=== PATIENT | female | born 1945 | race Caucasian/White ===

== ENCOUNTER 2021-07-21 00:35 | Emergency (ER) | payer MEDICARE, OTHER ==
[2021-07-21] MEDS ORDERED: Labetalol 20 MG/4 ML Syringe IVPUSH ONE ×2 (01:00→01:38)
[2021-07-21] MEDS ORDERED: Labetalol 20 MG/4 ML Syringe ONE (01:01)
[2021-07-21 01:26] LABS: ANION GAP 12.8 mEq/L (7-13); CHLORIDE,CL 103 mmol/L (98-107); SODIUM,NA 141 mmol/L (136-145)
--- NOTE | 2021-07-21 01:27 | EDM.PDOC ---
ED HPI GENERAL MEDICAL PROBLEM - General Chief Complaint: Neuro Symptoms/Deficits Stated Complaint: LEFT SIDE ON ARM AND FACE NUMB Time Seen by Provider: 07/21/21 00:50 Source of Information: Reports: Patient, RN History Limitations: Reports: No Limitations - History of Present Illness INITIAL COMMENTS - FREE TEXT/NARRATIVE: ED with c/o intermittent numbness to left fingertips and left cheek since 11pm. Denies prior similar simptoms, No headache, No blurring of vision, No noted difficulty with speech, reported off balance first couple of steps then seemed to be normal. Took baby aspirin at home when first noted symptoms. Describes hx of " normal BP at home 130-140's / 90 and that in clinic or hospital type setting BP is always higher, Has not been on medication for P for years and was stopped by medical provider since she didn't need it. Aspirin 81mg and 325mg taken [employer] T[employer]ER. 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: Aspirin - Related Data Allergies Allergy/AdvReac Type Severity Reaction Status Date / Time No Known Allergies Allergy Verified 07/21/21 00:47 Home Meds: Home Meds Bisoprolol/Hydrochlorothiazide [Ziac 10-6.25 MG] 1 tab PO DAILY 01/15/14 [History] Cholecalciferol (Vitamin D3) [Vitamin D3] PO DAILY 01/15/14 [History] Fish Oil/[place]-3 Fatty Acids [Fish Oil 1,000 MG] PO DAILY 01/15/14 [History] Lisinopril PO DAILY 01/15/14 [History] Lutein/Minerals/Vit A,C & E [Ocuvite] 1 tab PO DAILY 01/15/14 [History] Past Medical History - Past Health History Medical/Surgical History: Denies Medical/Surgical History Social & Family History - Tobacco Use Tobacco Use Status *Q: Never Tobacco User Second Hand Smoke Exposure: No - Caffeine Use Caffeine Use: Reports: None - Recreational Drug Use Recreational Drug Use: No ED ROS GENERAL - Review of Systems Review Of Systems: Comprehensive ROS is negative, except as noted in HPI. ED EXAM, NEURO - Physical Exam Exam: See Below Exam Limited By: No Limitations General Appearance: Alert, Anxious Eye Exam: Bilateral Eye: EOMI, PERRL Ears: Normal External Exam, Normal TMs Throat/Mouth: Normal Inspection, Normal Lips, Normal Oropharynx, Normal Voice Head Exam: Atraumatic, Normocephalic Neck: Normal Inspection Respiratory/Chest: No Respiratory Distress, Lungs Clear, Normal Breath Sounds Cardiovascular: Normal Peripheral Pulses, Regular Rate, Rhythm, No Edema GI/Abdominal: Normal Bowel Sounds Neurological: Alert, Normal Dorsiflexion, CN II-XII Intact, Oriented x 3, Other ( GCS 15, NIH score 1). No: No Motor/Sensory Deficits (1 slight decrease tip 2- 5), Abnormal Finger to Nose, Tremor, Difficulty Walking Back Exam: Normal Inspection Extremities: Normal Inspection, Normal Range of Motion Psychiatric: Anxious Skin Exam: Warm, Dry, Intact, Normal Color Course - Vital Signs Last Recorded V/S: Last Vital Signs Temp 97.8 F 07/21/21 01:20 Pulse 70 07/21/21 01:56 Resp 18 07/21/21 01:56 BP 168/85 H 07/21/21 01:56 Pulse Ox 97 07/21/21 01:56 - Orders/Labs/Meds Labs: Laboratory Tests 07/21/21 07/21/21 07/21/21 Range/Units 00:44 00:58 00:58 WBC 7.5 (5.0-10.0) 10^3/uL RBC 4.27 (4.2-5.4) 10^6/uL Hgb 12.7 (12.0-16.0) g/dL Hct 38.8 (37.0-47.0) % MCV 90.9 (80-100) fL MCH 29.7 (27.0-34.0) pg MCHC 32.7 L (33.0-35.0) g/dL Plt Count 272 (150-450) 10^3/uL Neut % (Auto) 47.7 (42.2-75.2) % Lymph % (Auto) 35.8 (20.5-50.1) % [place] % (Auto) 9.7 H (2-8) % Eos % (Auto) 6.0 H (1.0-3.0) % Baso % (Auto) 0.8 (0.0-1.0) % PT 9.3 (9.0-12.0) SEC INR 0.9 (0.9-1.2) D-Dimer, Quantitative 354 (0-400) ng/mL Sodium (136-145) mmol/L Potassium (3.5-5.1) mmol/L Chloride (98-107) mmol/L Carbon Dioxide (21-32) mmol/L Anion Gap (7-13) mEq/L BUN (7-18) mg/dL Creatinine (0.55-1.02) mg/dL Est Cr Clr Drug Dosing mL/min Estimated GFR (MDRD) BUN/Creatinine Ratio (No establ ref range) Glucose (70-99) mg/dL POC Glucose 107 H (70-99) mg/dL Calcium (8.5-10.1) mg/dL Total Bilirubin (0.2-1.0) mg/dL AST (15-37) U/L ALT (14-59) U/L Alkaline Phosphatase (46-116) U/L Troponin I High Sens (<=51) pg/mL Total Protein (6.4-8.2) g/dL Albumin (3.4-5.0) g/dL Globulin Albumin/Globulin Ratio // Range/Units 00:58 WBC (5.0-10.0) 10^3/uL RBC (4.2-5.4) 10^6/uL Hgb (12.0-16.0) g/dL Hct (37.0-47.0) % MCV (80-100) fL MCH (27.0-34.0) pg MCHC (33.0-35.0) g/dL Plt Count (150-450) 10^3/uL Neut % (Auto) (42.2-75.2) % Lymph % (Auto) (20.5-50.1) % [place] % (Auto) (2-8) % Eos % (Auto) (1.0-3.0) % Baso % (Auto) (0.0-1.0) % PT (9.0-12.0) SEC INR (0.9-1.2) D-Dimer, Quantitative (0-400) ng/mL Sodium 141 (136-145) mmol/L Potassium 3.8 (3.5-5.1) mmol/L Chloride 103 (98-107) mmol/L Carbon Dioxide 29 (21-32) mmol/L Anion Gap 12.8 (7-13) mEq/L BUN 20 H (7-18) mg/dL Creatinine 0.87 (0.55-1.02) mg/dL Est Cr Clr Drug Dosing 51.82 mL/min Estimated GFR (MDRD) > 60 BUN/Creatinine Ratio 23.0 (No establ ref range) Glucose 112 H (70-99) mg/dL POC Glucose (70-99) mg/dL Calcium 9.0 (8.5-10.1) mg/dL Total Bilirubin 0.3 (0.2-1.0) mg/dL AST 15 (15-37) U/L ALT 23 (14-59) U/L Alkaline Phosphatase 69 (46-116) U/L Troponin I High Sens 6 (<=51) pg/mL Total Protein 7.2 (6.4-8.2) g/dL Albumin 3.4 (3.4-5.0) g/dL Globulin 3.8 Albumin/Globulin Ratio 0.9 Meds: Medications Discontinued Medications Generic Name Dose Route Start Last Admin Trade Name Freq PRN Reason Stop Dose Admin Clopidogrel Bisulfate 300 mg 07/21/21 02:05 07/21/21 02:12 Clopidogrel 75 Mg Tab PO 07/21/21 02:06 300 mg ONETIME ONE Administration Labetalol HCl 20 mg 07/21/21 01:00 07/21/21 01:04 Labetalol 20 Mg/4 Ml Syringe IVPUSH 07/21/21 01:01 20 mg ONETIME ONE Administration Labetalol HCl Confirm 07/21/21 01:01 07/21/21 01:17 Labetalol 20 Mg/4 Ml Syringe Administered 07/21/21 01:02 Not Given Dose 20 mg .ROUTE .STK-MED ONE Labetalol HCl 20 mg 07/21/21 01:38 07/21/21 02:26 Labetalol 20 Mg/4 Ml Syringe IVPUSH 07/21/21 01:39 Not Given ONETIME ONE - Re-Assessments/Exams Free Text/Narrative Re-Assessment/Exam: 07/21/21 01:28 BP improved 170-80-90 following Labetolol. Reports numbness to finger tips resolved after returning from CT and after medication administered. 07/21/21 0200 [facility]ician[facility], Dr Lyons, No bed available for tx at this time, recommendation for MRI and further eval, Also to give Plavix 300mg at this time. [facility] accepting, patient refuses tx requests to leave AMA as "company coming and needs to get ready" risks discussed with patient and need for further evaluation and BP management. Continues to refuse transfer AMA form signed, Left ambulatory. Departure - Departure Time of Disposition: 02:20 Disposition: Against Medical Advice 07 Condition: Undetermined Clinical Impression: TIA (transient ischemic attack) Hypertension Qualifiers: Hypertension type: unspecified Qualified Code(s): I10 - Essential (primary) hypertension - Discharge Information *PRESCRIPTION DRUG MONITORING PROGRAM REVIEWED*: No *COPY OF PRESCRIPTION DRUG MONITORING REPORT IN PATIENT SMITH: No Forms: ED Department Discharge Sepsis Event Note (ED) - Focused Exam Vital Signs: Vital Signs Temp Pulse Resp BP Pulse Ox 07/21/21 01:56 70 18 168/85 H 97 07/21/21 01:20 97.8 F 74 20 174/83 H 97 07/21/21 00:47 98.1 F 88 18 150/130 H 100
--- NOTE | 2021-07-21 01:34 | CT ---
PROCEDURE INFORMATION: Exam: CT Head Without Contrast Exam date and time: 07/21/2021 12:58 AM Age: 75 years old Clinical indication: Numbness / parasthesia; Right; Additional info: Right hand and right cheek numbness TECHNIQUE: Imaging protocol: Computed tomography of the head without contrast. Radiation optimization: All CT scans at this facility use at least one of these dose optimization techniques: automated exposure control; mA and/or kV adjustment per patient size (includes targeted exams where dose is matched to clinical indication); or iterative reconstruction. COMPARISON: No relevant prior studies available. FINDINGS: Brain: There is no intracranial hemorrhage. There is no acute edema, mass effect or shift of the normally midline structures. The collado-white matter differentiation is preserved. There are no extra-axial fluid collections. Cerebral ventricles: The ventricles and sulci are age appropriate. Paranasal sinuses: The paranasal sinuses are normally aerated. Mastoid air cells: The mastoid air cells and middle ear cavities are normally aerated. Bones/joints: The calvarium is intact. Soft tissues: The soft tissues are within normal limits. IMPRESSION: No acute intracranial hemorrhage or edema identified. An acute infarct may not be visible on CT for up to 24-48 hours. If there is high clinical suspicion for acute infarct, a follow-up head CT or brain MRI should be considered.
[2021-07-21] MEDS ORDERED: Clopidogrel 75 MG Tab PO ONE (02:05)
== END 2021-07-21 02:24 | disposition left against medical advice (07) ==
LOC: DL.ED 00:35
DX: G45.9 Transient cerebral ischemic attack, unspecified (principal); I10 Essential (primary) hypertension
CPT/HCPCS: 36415; 70450; 80053; 82947; 84484; 85025; 85379; 85610; 93005; 96374; 99284; A9270; J3490